=== PATIENT | female | born 1970 | race Caucasian/White ===

== ENCOUNTER 2017-09-08 18:51 | Emergency (ER) | payer OTHER ==
[2017-09-08 19:44] VITALS: BP 148/83; TEMP 99.2; BMI 33.3
--- NOTE | 2017-09-08 20:24 | PDOC ---
History of Present Illness - General Chief Complaint: Abscess Boil Stated Complaint: ABCESS Time Seen by Provider: 09/08/17 19:31 History Source: Patient, Old Records Exam Limitations: No Limitations - History of Present Illness Initial Comments: 09/08/17 20:23 This is a 47-year-old woman with past medical history of basilar reocclusions, NIDDM, acute bronchitis, bipolar disorder, major depressive disorder who is a resident at [facility] who was sent to emergency department for abscess to her right arm for 6 days which has not improved despite 2 days of Augmentin. Past History - Past Medical History Allergies/Adverse Reactions: Allergies Allergy/AdvReac Type Severity Reaction Status Date / Time acetaminophen Allergy Verified 09/08/17 19:45 [From Darvocet-N] bupropion [From Wellbutrin] Allergy Verified 09/08/17 19:45 codeine Allergy Verified 09/08/17 19:45 hydrocortisone Allergy Verified 09/08/17 19:45 propoxyphene Allergy Verified 09/08/17 19:45 [From Darvocet-N] silver sulfadiazine Allergy Verified 09/08/17 19:45 [From Silvadene] sulfur [From Sulfur-8] Allergy Verified 09/08/17 19:45 Home Medications: Ambulatory Orders Clindamycin [Cleocin -] 150 mg PO Q8H #63 capsule 09/08/17 Anemia: Yes COPD: Yes Diabetes: Yes Psychiatric Problems: Yes (Bipolar) Thyroid Disease: Yes - Suicide/Smoking/Psychosocial Hx Smoking History: Never smoked Hx Alcohol Use: No Drug/Substance Use Hx: No Review of Systems - Review of Systems Able to Perform ROS?: Yes Is the patient limited [place] proficient: No Constitutional: No: Symptoms Reported HEENTM: No: Symptoms Reported Respiratory: No: Symptoms reported Cardiac (ROS): No: Symptoms Reported ABD/GI: No: Symptoms Reported : No: Symptoms Reported Musculoskeletal: No: Symptoms Reported Integumentary: Yes: See HPI Neurological: No: Symptoms reported *Physical Exam - Vital Signs Last Vital Signs Temp Pulse Resp BP Pulse Ox 99.2 F 64 18 148/83 95 09/08/17 19:30 09/08/17 19:30 09/08/17 19:30 09/08/17 19:30 09/08/17 19:30 - Physical Exam General Appearance: Yes: Appropriately Dressed. No: Apparent Distress HEENT: positive: Normal ENT Inspection Neck: positive: Trachea midline, Supple, Other (tracheostomy in place) Respiratory/Chest: positive: Lungs Clear, Normal Breath Sounds, Other (on 28% oxygen via trach collar at baseline). negative: Respiratory Distress, Accessory Muscle Use Cardiovascular: positive: Regular Rhythm, Regular Rate. negative: Murmur Gastrointestinal/Abdominal: positive: Normal Bowel Sounds, Soft, Other (PEG tube present. Skin surround is within normal limits without erythema or drainage ). negative: Tender Musculoskeletal: positive: Normal Inspection Extremity: positive: Other (5x7cm ovoid area of induration with 1cm circular self draining area of fluctuance in the center) Integumentary: positive: Other (5x7cm ovoid area of induration with 1cm circular self draining area of fluctuance in the center) Neurologic: positive: Alert, Normal Response ED Treatment Course - LABORATORY CBC & Chemistry Diagram: 09/08/17 20:35 09/08/17 21:35 Medical Decision Making - Medical Decision Making 09/08/17 20:26 47-year-old woman with multiple medical problems including basilar occlusions and NIDDM with abscess noted to right forearm 5x7 cm ovoid area of induration noted to the volar side of the mid forearm. 1cm circular self draining area of fluctuance noted in the center of erythema Purulent brown drainage expressed from center No fluctuant areas remain after expression of pus Surrounding cellulitis remains Given patient's history of diabetes and inappropriate response to Augmentin I will collect laboratory testing, wound culture, and IV antibiotics. Given patient's shelter resident in care home facility, appearance of the wound drainage and no response to Augmentin this is likely an MRSA infection. Patient has ALLERGY to "sulfur" so I will defer Bactrim at this time and give the patient clindamycin. 09/08/17 22:27 Laboratory testing is unremarkable with the exception of a white count of 10.1. No left shift noted. Will discharge the patient back to during group home with prescription to continue taking clindamycin 450 mg 3 times a day for the next 7 days. 09/08/17 22:35 [facility] called an change in treatment plan relayed to the nurse responsible for the lower level floor where the patient resides. *DC/Admit/Observation/Transfer Diagnosis at time of Disposition: Abscess of arm, right - Discharge Dispostion Disposition: [facility] Condition at time of disposition: Fair Decision to Admit order: No - Prescriptions Prescriptions: Clindamycin [Cleocin -] 150 mg PO Q8H #63 capsule - Referrals Referrals: Yves Dutton MD [Primary Care Provider] - - Patient Instructions Additional Instructions: Rest, keep area elevated. Avoid strenuous activity or exercise until wound is healed Use hot soaks to area to bring more blood to the surface and encourage drainage May change dressings as needed to keep clean - trying to avoid removal of packing for 2 days. Allow water from shower to wash area thoroughly for 2-3 minutes, and pat dry upon exit of shower and replace dressing. Change his dressing daily until the wound is completely healed. May use Tylenol or Motrin for mild pain relief Take clindamycin 450mg- 3 times a day for the next 7 days. Followup with private physician in 2-3 days for wound check Return to emergency Department for worsening swelling, pain, redness, fevers as needed - Post Discharge Activity
[2017-09-08] MEDS ORDERED: CLINDAMYCIN 600MG PREMIX IVPB 600 MG/50 ML BAG IVPB ONE ×2 (20:30→20:47)
[2017-09-08 20:48] LABS: BASO % 0.7 % (0-2.0); EOS % 2.5 % (0-4.5); HEMATOCRIT 44.8 % (32.4-45.2); HEMOGLOBIN 14.7 GM/dL (10.7-15.3); LYMPH % 28.1 % (8-40); MCH 27.2 pg (25.7-33.7); MCHC 32.8 g/dl (32.0-36.0); MEAN CELL VOLUME 83.1 fl (80-96); MEAN PLT VOLUME 9.9 fl (7.5-11.1); MONO % 5.4 % (3.8-10.2); NEUT % 63.3 % (42.8-82.8); PLATELET COUNT 212 K/MM3 (134-434); RDW 13.8 % (11.6-15.6); WHITE BLOOD COUNT 10.1 K/mm3 (4.0-10.0)
[2017-09-08 22:19] LABS: ALBUMIN 3.5 g/dl (3.4-5.0); ANION GAP 9 (8-16); BLOOD UREA NITROGEN 14 mg/dL (7-18); CALCIUM 8.8 mg/dL (8.5-10.1); CHLORIDE 101 mmol/L (98-107); CO2 28 mmol/L (21-32); CREATININE 0.5 mg/dL (0.55-1.02); GLUCOSE,RANDOM 124 mg/dL (74-106); SGOT/AST 9 U/L (15-37); SGPT/ALT 19 U/L (12-78); SODIUM 138 mmol/L (136-145)
[2017-09-08 22:25] LABS: ALK PHOS 76 U/L (45-117); BILIRUBIN,TOTAL 0.3 mg/dL (0.2-1.0)
[2017-09-08 23:12] VITALS: PULSE 74
== END 2017-09-09 ==
LOC: JER 18:51
DX: L02.413 Cutaneous abscess of right upper limb (principal); E11.9 Type 2 diabetes mellitus without complications; F31.9 Bipolar disorder, unspecified; J44.9 Chronic obstructive pulmonary disease, unspecified; I66.9 Occlusion and stenosis of unspecified cerebral artery; Z87.09 Personal history of other diseases of the respiratory system; Z88.8 Allergy status to other drugs, medicaments and biological substances; Z79.84 Long term (current) use of oral hypoglycemic drugs
CPT/HCPCS: 36415; 80053; 83605; 85025; 87040; 87070; 87186; 87205; 99284-25

== ENCOUNTER 2018-09-13 11:42 | Emergency (ER) | payer OTHER | END 2018-09-13 16:57 | LOC: JER 11:42 ==

== ENCOUNTER 2023-03-23 15:41 | Inpatient (IN) | payer OTHER ==
[2023-03-23 16:38] VITALS: BMI 31.2
[2023-03-23 18:02] LABS: BASO % 0.7 % (0-2.0); EOS % 2.2 % (0-4.5); HEMOGLOBIN 14.2 GM/dL (10.7-15.3); LYMPH % 30.1 % (8-40); MCH 27.7 pg (25.7-33.7); MCHC 33.9 g/dl (32.0-36.0); MEAN CELL VOLUME 81.6 fl (80-96); MEAN PLT VOLUME 9.2 fl (7.5-11.1); MONO % 6.2 % (3.8-10.2); NEUT % 60.8 % (42.8-82.8); PLATELET COUNT 239 10^3/uL (134-434); RBC 5.15 M/mm3 (3.60-5.2); RDW 13.3 % (11.6-15.6); WHITE BLOOD COUNT 10.8 K/mm3 (4.0-10.0)
[2023-03-23 18:15] LABS: POTASSIUM 4.4 mmol/L (3.5-5.1)
[2023-03-23 18:17] LABS: BLOOD UREA NITROGEN 13.8 mg/dL (7-18); CALCIUM 8.9 mg/dL (8.5-10.1)
[2023-03-23 18:18] LABS: ALBUMIN 3.4 g/dl (3.4-5.0)
[2023-03-23 18:20] LABS: CREATININE 0.6 mg/dL (0.55-1.3)
[2023-03-23 18:22] LABS: BILIRUBIN,TOTAL 0.4 mg/dL (0.2-1); TOT PROT 6.7 g/dl (6.4-8.2)
[2023-03-23] MEDS ORDERED: PIPERACILLIN/TAZOB 3.375 GM 3.375 GM in DEXTROSE 5%-WATER - 50 ML IVPB SCH (21:45)
[2023-03-23] MEDS ORDERED: POLYETHYLENE GLYCOL (HEALTHYLAX) 3350 17 GM PACKET ONE (22:02)
[2023-03-23] MEDS ORDERED: PIPERACILLIN/TAZOB 3.375 GM 3.375 GM/50 ML BAG IVPB ONE (22:02)
[2023-03-23 22:24] LABS: URINE APPEARANCE CLEAR; URINE BILIRUBIN NEGATIVE (NEGATIVE); URINE COLOR YELLOW; URINE GLUCOSE (UA) 100 (NEGATIVE); URINE KETONE NEGATIVE (NEGATIVE)
[2023-03-23] MEDS: POLYETHYLENE GLYCOL (HEALTHYLAX) 3350 17 GM PACKET PO SCH (22:24)
[2023-03-23] MEDS: PIPERACILLIN/TAZOB 3.375 GM 3.375 GM in DEXTROSE 5%-WATER - 50 ML IVPB SCH (22:24)
[2023-03-23 22:25] LABS: URINE LEUK ESTERASE NEGATIVE (NEGATIVE); URINE NITRITE NEGATIVE (NEGATIVE); URINE PROTEIN NEGATIVE (NEGATIVE); URINE UROBILINOGEN 0.2 mg/dL (0.2-1.0)
[2023-03-24] MEDS ORDERED: MAGNESIUM CITRATE 300 ML BOTTLE PO ONE (01:18)
[2023-03-24] MEDS ORDERED: PATIENT'S OWN MEDICATION (NON-FORMULARY) (Acetaminophen [Acetaminophen] 325 MG Capsule) PO PRN (01:23)
[2023-03-24] MEDS ORDERED: ALBUTEROL SO4 HFA INHALER IH PRN (01:23)
[2023-03-24] MEDS ORDERED: PIPERACILLIN/TAZOB 3.375 GM 3.375 GM/50 ML BAG IVPB ONE ×2 (05:00→08:53)
[2023-03-24] MEDS: PIPERACILLIN/TAZOB 3.375 GM 3.375 GM in DEXTROSE 5%-WATER - 50 ML IVPB SCH ×2 (05:20→09:04)
[2023-03-24] MEDS: MINERAL OIL ENEMA 133 ML ENEMA RC SCH ×2 (05:20→05:21)
[2023-03-24 07:23] LABS: HEMATOCRIT 42.1 % (32.4-45.2); HEMOGLOBIN 14.4 GM/dL (10.7-15.3); MCH 27.9 pg (25.7-33.7); MCHC 34.1 g/dl (32.0-36.0); MEAN CELL VOLUME 81.9 fl (80-96); MEAN PLT VOLUME 9.5 fl (7.5-11.1); PLATELET COUNT 222 10^3/uL (134-434); RBC 5.15 M/mm3 (3.60-5.2); RDW 13.3 % (11.6-15.6); WHITE BLOOD COUNT 9.9 K/mm3 (4.0-10.0)
[2023-03-24 07:54] LABS: POTASSIUM 4.2 mmol/L (3.5-5.1)
[2023-03-24 07:59] LABS: ALBUMIN 3.5 g/dl (3.4-5.0)
[2023-03-24 08:02] LABS: BILIRUBIN,DIRECT 0.2 mg/dL (0.0-0.2)
[2023-03-24 08:03] LABS: BILIRUBIN,TOTAL 0.5 mg/dL (0.2-1); TOT PROT 6.8 g/dl (6.4-8.2)
[2023-03-24 08:04] LABS: MAGNESIUM 2.2 mg/dL (1.8-2.4)
[2023-03-24 08:05] LABS: BLOOD UREA NITROGEN 13.4 mg/dL (7-18)
[2023-03-24 08:07] LABS: PHOSPHOROUS 4.9 mg/dL (2.5-4.9)
[2023-03-24 08:08] LABS: CREATININE 0.8 mg/dL (0.55-1.3)
[2023-03-24] MEDS: INSULIN SLIDING SCALE (NOVOLOG) 1 VIAL SQ SCH ×4 (08:45→22:38)
[2023-03-24] MEDS ORDERED: busPIRone HCL 5 MG TABLET ONE (08:52)
[2023-03-24] MEDS ORDERED: METOPROLOL TARTRATE 25 MG TABLET (FP) ONE (08:52)
[2023-03-24] MEDS ORDERED: CLOPIDOGREL BISULFATE 75 MG TABLET (FP) ONE (08:52)
[2023-03-24] MEDS ORDERED: FAMOTIDINE 20 MG TABLET ONE (08:52)
[2023-03-24] MEDS ORDERED: POLYETHYLENE GLYCOL (HEALTHYLAX) 3350 17 GM PACKET ONE (08:52)
[2023-03-24] MEDS ORDERED: METOPROLOL TARTRATE 50 MG TABLET (FP) ONE (08:52)
[2023-03-24] MEDS ORDERED: ASPIRIN 81 MG CHEWABLE TABLETS ONE (08:53)
[2023-03-24] MEDS ORDERED: DULoxetine HCL 30 MG CAPSULE.DR PO ONE (08:53)
[2023-03-24] MEDS ORDERED: ESCITALOPRAM OXALATE 10 MG TABLET ONE (08:53)
[2023-03-24] MEDS ORDERED: LEVOTHYROXINE NA 25 MCG TABLET (FP) ONE (08:53)
[2023-03-24] MEDS: DULoxetine HCL 30 MG CAPSULE.DR PO SCH (08:57)
[2023-03-24] MEDS: busPIRone HCL 5 MG TABLET PO SCH ×2 (08:58→21:29)
[2023-03-24] MEDS: FAMOTIDINE 20 MG TABLET PO SCH (08:58)
[2023-03-24] MEDS: ESCITALOPRAM OXALATE 10 MG TABLET PO SCH (08:59)
[2023-03-24] MEDS: ASPIRIN 81 MG CHEWABLE TABLETS PO SCH (08:59)
[2023-03-24] MEDS: POLYETHYLENE GLYCOL (HEALTHYLAX) 3350 17 GM PACKET PO SCH ×2 (08:59→21:28)
[2023-03-24] MEDS: CLOPIDOGREL BISULFATE 75 MG TABLET (FP) PO SCH (08:59)
[2023-03-24] MEDS: LIDOCAINE 4% PATCH TP SCH (09:00)
[2023-03-24] MEDS: LEVOTHYROXINE NA 25 MCG TABLET (FP) PO SCH (09:01)
[2023-03-24] MEDS: MULTIVITAMINS THER W-MINERALS COMBO TABLET (FP) PO SCH (09:01)
[2023-03-24] MEDS: HEPARIN NA (PORCINE) 5,000 UNITS/ML 1ML VIAL SQ SCH ×2 (09:01→21:32)
[2023-03-24] MEDS: METOPROLOL TARTRATE 50 MG TABLET (FP) PO SCH ×3 (09:02→21:29)
[2023-03-24] MEDS: INSULIN (LEVEMIR) 100 UNITS/ML UNITS SQ SCH (09:30)
[2023-03-24] MEDS ORDERED: clonazePAM 0.25 MG ODT TABLETS SL SCH (10:00)
[2023-03-24] MEDS ORDERED: PATIENT'S OWN MEDICATION (NON-FORMULARY) (Linaclotide [Linzess] 145 MCG Capsule) PO SCH (10:00)
[2023-03-24] MEDS: MELATONIN 1 MG TABLET PO SCH (21:28)
[2023-03-24] MEDS: ATORVASTATIN CA 80 MG TABLET (FP) PO SCH (21:31)
[2023-03-24] MEDS: SENNOSIDES 8.6MG TABLET (FP) PO SCH (21:32)
[2023-03-24] MEDS: clonazePAM 0.25 MG ODT TABLETS SL SCH (22:38)
[2023-03-24] MEDS: LIDOCAINE PATCH REMOVAL MC SCH (22:39)
[2023-03-25] MEDS: LEVOTHYROXINE NA 25 MCG TABLET (FP) PO SCH (06:33)
[2023-03-25] MEDS: INSULIN SLIDING SCALE (NOVOLOG) 1 VIAL SQ SCH ×4 (06:38→22:13)
[2023-03-25 09:19] LABS: BASO % 0.5 % (0-2.0); EOS % 2.6 % (0-4.5); HEMATOCRIT 43.3 % (32.4-45.2); HEMOGLOBIN 14.5 GM/dL (10.7-15.3); LYMPH % 27.7 % (8-40); MCH 27.6 pg (25.7-33.7); MCHC 33.4 g/dl (32.0-36.0); MEAN CELL VOLUME 82.6 fl (80-96); MEAN PLT VOLUME 9.6 fl (7.5-11.1); MONO % 5.4 % (3.8-10.2); NEUT % 63.8 % (42.8-82.8); PLATELET COUNT 216 10^3/uL (134-434); RBC 5.24 M/mm3 (3.60-5.2); RDW 13.5 % (11.6-15.6); WHITE BLOOD COUNT 7.6 K/mm3 (4.0-10.0)
[2023-03-25 09:30] LABS: POTASSIUM 5.1 mmol/L (3.5-5.1)
[2023-03-25 09:35] LABS: CALCIUM 8.8 mg/dL (8.5-10.1)
[2023-03-25 09:36] LABS: ALBUMIN 3.4 g/dl (3.4-5.0); BLOOD UREA NITROGEN 8.9 mg/dL (7-18)
[2023-03-25 09:38] LABS: CREATININE 0.6 mg/dL (0.55-1.3)
[2023-03-25 09:40] LABS: BILIRUBIN,TOTAL 0.4 mg/dL (0.2-1); TOT PROT 6.6 g/dl (6.4-8.2)
[2023-03-25] MEDS ORDERED: PEG 3350/NA SULF BICARB CL/KCL 4000 ML SOLN.RECON PO ONE (10:00)
[2023-03-25] MEDS: DULoxetine HCL 30 MG CAPSULE.DR PO SCH (10:16)
[2023-03-25] MEDS: LIDOCAINE 4% PATCH TP SCH (10:17)
[2023-03-25] MEDS: ASPIRIN 81 MG CHEWABLE TABLETS PO SCH (10:17)
[2023-03-25] MEDS: busPIRone HCL 5 MG TABLET PO SCH ×2 (10:17→21:57)
[2023-03-25] MEDS: MULTIVITAMINS THER W-MINERALS COMBO TABLET (FP) PO SCH (10:17)
[2023-03-25] MEDS: ESCITALOPRAM OXALATE 10 MG TABLET PO SCH (10:18)
[2023-03-25] MEDS: METOPROLOL TARTRATE 50 MG TABLET (FP) PO SCH ×2 (10:18→21:58)
[2023-03-25] MEDS: CLOPIDOGREL BISULFATE 75 MG TABLET (FP) PO SCH (10:19)
[2023-03-25] MEDS: FAMOTIDINE 20 MG TABLET PO SCH (10:19)
[2023-03-25] MEDS: POLYETHYLENE GLYCOL (HEALTHYLAX) 3350 17 GM PACKET PO SCH ×2 (10:19→21:57)
[2023-03-25] MEDS: HEPARIN NA (PORCINE) 5,000 UNITS/ML 1ML VIAL SQ SCH ×2 (10:19→22:01)
[2023-03-25] MEDS: INSULIN (LEVEMIR) 100 UNITS/ML UNITS SQ SCH (10:20)
[2023-03-25] MEDS ORDERED: INSULIN (NOVOLOG) ASPART 100 UNITS/ML 10ML VIAL ONE ×2 (10:39→17:31)
[2023-03-25] MEDS ORDERED: INSULIN (LEVEMIR) 100 UNITS/ML UNITS SQ ONE (17:31)
[2023-03-25] MEDS: MELATONIN 1 MG TABLET PO SCH (21:57)
[2023-03-25] MEDS: SENNOSIDES 8.6MG TABLET (FP) PO SCH (21:57)
[2023-03-25] MEDS: clonazePAM 0.25 MG ODT TABLETS SL SCH (21:59)
[2023-03-25] MEDS: ATORVASTATIN CA 80 MG TABLET (FP) PO SCH (22:01)
[2023-03-25] MEDS: LIDOCAINE PATCH REMOVAL MC SCH (22:04)
[2023-03-26] MEDS: LEVOTHYROXINE NA 25 MCG TABLET (FP) PO SCH (06:25)
[2023-03-26] MEDS: INSULIN SLIDING SCALE (NOVOLOG) 1 VIAL SQ SCH ×4 (06:31→22:41)
[2023-03-26] MEDS: CLOPIDOGREL BISULFATE 75 MG TABLET (FP) PO SCH (09:16)
[2023-03-26] MEDS: METOPROLOL TARTRATE 50 MG TABLET (FP) PO SCH ×2 (09:16→22:50)
[2023-03-26] MEDS: POLYETHYLENE GLYCOL (HEALTHYLAX) 3350 17 GM PACKET PO SCH ×2 (09:16→22:57)
[2023-03-26] MEDS: DULoxetine HCL 30 MG CAPSULE.DR PO SCH (09:17)
[2023-03-26] MEDS: ESCITALOPRAM OXALATE 10 MG TABLET PO SCH (09:17)
[2023-03-26] MEDS: INSULIN (LEVEMIR) 100 UNITS/ML UNITS SQ SCH (09:19)
[2023-03-26] MEDS: HEPARIN NA (PORCINE) 5,000 UNITS/ML 1ML VIAL SQ SCH ×2 (09:20→22:51)
[2023-03-26] MEDS: LIDOCAINE 4% PATCH TP SCH (09:21)
[2023-03-26] MEDS: busPIRone HCL 5 MG TABLET PO SCH ×2 (09:22→22:50)
[2023-03-26] MEDS: ASPIRIN 81 MG CHEWABLE TABLETS PO SCH (09:23)
[2023-03-26] MEDS: FAMOTIDINE 20 MG TABLET PO SCH (09:23)
[2023-03-26] MEDS: MULTIVITAMINS THER W-MINERALS COMBO TABLET (FP) PO SCH (09:23)
[2023-03-26 09:33] LABS: BASO % 0.3 % (0-2.0); EOS % 2.1 % (0-4.5); HEMATOCRIT 43.2 % (32.4-45.2); HEMOGLOBIN 14.5 GM/dL (10.7-15.3); LYMPH % 21.5 % (8-40); MCH 27.8 pg (25.7-33.7); MCHC 33.5 g/dl (32.0-36.0); MEAN CELL VOLUME 83.1 fl (80-96); MEAN PLT VOLUME 9.4 fl (7.5-11.1); MONO % 4.4 % (3.8-10.2); NEUT % 71.7 % (42.8-82.8); PLATELET COUNT 213 10^3/uL (134-434); RDW 13.3 % (11.6-15.6); WHITE BLOOD COUNT 9.8 K/mm3 (4.0-10.0)
[2023-03-26 09:49] LABS: POTASSIUM 4.5 mmol/L (3.5-5.1)
[2023-03-26 09:53] LABS: CALCIUM 8.7 mg/dL (8.5-10.1)
[2023-03-26 09:54] LABS: ALBUMIN 3.3 g/dl (3.4-5.0)
[2023-03-26 09:57] LABS: CREATININE 0.7 mg/dL (0.55-1.3)
[2023-03-26 09:58] LABS: BILIRUBIN,TOTAL 0.7 mg/dL (0.2-1)
[2023-03-26 09:59] LABS: TOT PROT 6.6 g/dl (6.4-8.2)
[2023-03-26] MEDS ORDERED: INSULIN (NOVOLOG) ASPART 100 UNITS/ML 10ML VIAL ONE ×2 (11:09→17:00)
[2023-03-26] MEDS: LIDOCAINE PATCH REMOVAL MC SCH (21:41)
[2023-03-26] MEDS: MELATONIN 1 MG TABLET PO SCH (22:47)
[2023-03-26] MEDS: SENNOSIDES 8.6MG TABLET (FP) PO SCH (22:47)
[2023-03-26] MEDS: ATORVASTATIN CA 80 MG TABLET (FP) PO SCH (22:49)
[2023-03-26] MEDS: clonazePAM 0.25 MG ODT TABLETS SL SCH (22:50)
[2023-03-27] MEDS ORDERED: INSULIN (NOVOLOG) ASPART 100 UNITS/ML 10ML VIAL ONE ×3 (06:29→22:28)
[2023-03-27] MEDS: LEVOTHYROXINE NA 25 MCG TABLET (FP) PO SCH (06:40)
[2023-03-27] MEDS: INSULIN SLIDING SCALE (NOVOLOG) 1 VIAL SQ SCH ×4 (06:40→22:40)
[2023-03-27 09:32] LABS: BASO % 0.4 % (0-2.0); EOS % 3.1 % (0-4.5); HEMATOCRIT 42.8 % (32.4-45.2); HEMOGLOBIN 14.3 GM/dL (10.7-15.3); LYMPH % 24.1 % (8-40); MCH 27.8 pg (25.7-33.7); MCHC 33.4 g/dl (32.0-36.0); MEAN CELL VOLUME 83.1 fl (80-96); MEAN PLT VOLUME 9.5 fl (7.5-11.1); MONO % 4.4 % (3.8-10.2); PLATELET COUNT 221 10^3/uL (134-434); RBC 5.15 M/mm3 (3.60-5.2); RDW 13.2 % (11.6-15.6); WHITE BLOOD COUNT 10.4 K/mm3 (4.0-10.0)
[2023-03-27 09:40] LABS: POTASSIUM 4.4 mmol/L (3.5-5.1)
[2023-03-27 09:42] LABS: CALCIUM 9.8 mg/dL (8.5-10.1)
[2023-03-27 09:43] LABS: ALBUMIN 3.3 g/dl (3.4-5.0); BLOOD UREA NITROGEN 4.9 mg/dL (7-18)
[2023-03-27 09:46] LABS: CREATININE 0.6 mg/dL (0.55-1.3)
[2023-03-27 09:48] LABS: BILIRUBIN,TOTAL 0.7 mg/dL (0.2-1); TOT PROT 6.5 g/dl (6.4-8.2)
[2023-03-27] MEDS: HEPARIN NA (PORCINE) 5,000 UNITS/ML 1ML VIAL SQ SCH ×2 (10:38→22:39)
[2023-03-27] MEDS: POLYETHYLENE GLYCOL (HEALTHYLAX) 3350 17 GM PACKET PO SCH ×2 (10:40→22:40)
[2023-03-27] MEDS: busPIRone HCL 5 MG TABLET PO SCH ×2 (10:40→22:36)
[2023-03-27] MEDS: ESCITALOPRAM OXALATE 10 MG TABLET PO SCH (10:41)
[2023-03-27] MEDS: FAMOTIDINE 20 MG TABLET PO SCH (10:41)
[2023-03-27] MEDS: DULoxetine HCL 30 MG CAPSULE.DR PO SCH (10:42)
[2023-03-27] MEDS: ASPIRIN 81 MG CHEWABLE TABLETS PO SCH (10:42)
[2023-03-27] MEDS: CLOPIDOGREL BISULFATE 75 MG TABLET (FP) PO SCH (10:42)
[2023-03-27] MEDS: METOPROLOL TARTRATE 50 MG TABLET (FP) PO SCH ×2 (10:43→22:37)
[2023-03-27] MEDS: INSULIN (LEVEMIR) 100 UNITS/ML UNITS SQ SCH (10:43)
[2023-03-27] MEDS: LIDOCAINE 4% PATCH TP SCH (10:44)
[2023-03-27] MEDS: MULTIVITAMINS THER W-MINERALS COMBO TABLET (FP) PO SCH (10:44)
[2023-03-27] MEDS: ATORVASTATIN CA 80 MG TABLET (FP) PO SCH (22:36)
[2023-03-27] MEDS: SENNOSIDES 8.6MG TABLET (FP) PO SCH (22:36)
[2023-03-27] MEDS: clonazePAM 0.25 MG ODT TABLETS SL SCH (22:36)
[2023-03-27] MEDS: MELATONIN 1 MG TABLET PO SCH (22:36)
[2023-03-27] MEDS: LIDOCAINE PATCH REMOVAL MC SCH (22:41)
[2023-03-27 22:55] VITALS: RESP 18
[2023-03-28] MEDS: LEVOTHYROXINE NA 25 MCG TABLET (FP) PO SCH (06:35)
[2023-03-28] MEDS: INSULIN SLIDING SCALE (NOVOLOG) 1 VIAL SQ SCH ×4 (06:56→21:40)
[2023-03-28 09:18] LABS: BASO % 0.4 % (0-2.0); EOS % 2.3 % (0-4.5); HEMATOCRIT 44.4 % (32.4-45.2); HEMOGLOBIN 14.5 GM/dL (10.7-15.3); LYMPH % 23.7 % (8-40); MCHC 32.7 g/dl (32.0-36.0); MEAN CELL VOLUME 82.7 fl (80-96); MEAN PLT VOLUME 9.2 fl (7.5-11.1); MONO % 4.3 % (3.8-10.2); NEUT % 69.3 % (42.8-82.8); PLATELET COUNT 225 10^3/uL (134-434); RBC 5.37 M/mm3 (3.60-5.2); RDW 13.3 % (11.6-15.6); WHITE BLOOD COUNT 9.6 K/mm3 (4.0-10.0)
[2023-03-28 10:50] LABS: ALBUMIN 3.3 g/dl (3.4-5.0); BILIRUBIN,TOTAL 0.8 mg/dL (0.2-1); CALCIUM 9.3 mg/dL (8.5-10.1); CREATININE 0.6 mg/dL (0.55-1.3); POTASSIUM 4.4 mmol/L (3.5-5.1); TOT PROT 6.3 g/dl (6.4-8.2)
[2023-03-28] MEDS: FAMOTIDINE 20 MG TABLET PO SCH (10:57)
[2023-03-28] MEDS: DULoxetine HCL 30 MG CAPSULE.DR PO SCH (10:57)
[2023-03-28] MEDS: CLOPIDOGREL BISULFATE 75 MG TABLET (FP) PO SCH (10:57)
[2023-03-28] MEDS: METOPROLOL TARTRATE 50 MG TABLET (FP) PO SCH ×3 (10:57→23:45)
[2023-03-28] MEDS: ESCITALOPRAM OXALATE 10 MG TABLET PO SCH (10:58)
[2023-03-28] MEDS: MULTIVITAMINS THER W-MINERALS COMBO TABLET (FP) PO SCH (10:58)
[2023-03-28] MEDS: ASPIRIN 81 MG CHEWABLE TABLETS PO SCH (10:58)
[2023-03-28] MEDS: HEPARIN NA (PORCINE) 5,000 UNITS/ML 1ML VIAL SQ SCH ×2 (10:59→21:39)
[2023-03-28] MEDS: INSULIN (LEVEMIR) 100 UNITS/ML UNITS SQ SCH (10:59)
[2023-03-28] MEDS: POLYETHYLENE GLYCOL (HEALTHYLAX) 3350 17 GM PACKET PO SCH ×3 (10:59→22:03)
[2023-03-28] MEDS: LIDOCAINE 4% PATCH TP SCH (11:00)
[2023-03-28] MEDS: busPIRone HCL 5 MG TABLET PO SCH ×2 (11:05→21:37)
[2023-03-28] MEDS ORDERED: DOCUSATE SODIUM 100 MG CAPSULE (FP) PO PRN (15:02)
[2023-03-28] MEDS: clonazePAM 0.25 MG ODT TABLETS SL SCH (21:37)
[2023-03-28] MEDS: SENNOSIDES 8.6MG TABLET (FP) PO SCH (21:38)
[2023-03-28] MEDS: MELATONIN 1 MG TABLET PO SCH (21:38)
[2023-03-28] MEDS: ATORVASTATIN CA 80 MG TABLET (FP) PO SCH (21:38)
[2023-03-28] MEDS: LIDOCAINE PATCH REMOVAL MC SCH (21:40)
[2023-03-29] MEDS: LEVOTHYROXINE NA 25 MCG TABLET (FP) PO SCH (07:02)
[2023-03-29] MEDS: INSULIN SLIDING SCALE (NOVOLOG) 1 VIAL SQ SCH ×2 (07:02→11:35)
[2023-03-29] MEDS: INSULIN (LEVEMIR) 100 UNITS/ML UNITS SQ SCH (10:23)
[2023-03-29] MEDS: CLOPIDOGREL BISULFATE 75 MG TABLET (FP) PO SCH (10:26)
[2023-03-29] MEDS: ESCITALOPRAM OXALATE 10 MG TABLET PO SCH (10:26)
[2023-03-29] MEDS: ASPIRIN 81 MG CHEWABLE TABLETS PO SCH (10:26)
[2023-03-29] MEDS: DULoxetine HCL 30 MG CAPSULE.DR PO SCH (10:27)
[2023-03-29] MEDS: busPIRone HCL 5 MG TABLET PO SCH (10:27)
[2023-03-29] MEDS: FAMOTIDINE 20 MG TABLET PO SCH (10:27)
[2023-03-29] MEDS: METOPROLOL TARTRATE 50 MG TABLET (FP) PO SCH ×2 (10:27→10:31)
[2023-03-29] MEDS: MULTIVITAMINS THER W-MINERALS COMBO TABLET (FP) PO SCH (10:27)
[2023-03-29] MEDS: POLYETHYLENE GLYCOL (HEALTHYLAX) 3350 17 GM PACKET PO SCH (10:28)
[2023-03-29] MEDS: LIDOCAINE 4% PATCH TP SCH (10:28)
[2023-03-29] MEDS: HEPARIN NA (PORCINE) 5,000 UNITS/ML 1ML VIAL SQ SCH (10:28)
[2023-03-29 15:21] VITALS: BP 110/62; PULSE 63; TEMP 98.7
[2023-03-29] MEDS ORDERED: INSULIN (NOVOLOG) ASPART 100 UNITS/ML 10ML VIAL ONE (17:59)
== END 2023-03-29 17:35 | DRG 395 ==
LOC: JER 15:41 → JERBED 21:39 → J7W 03-24 13:32
PROVIDERS: ADMIT Internal Medicine
DX: K62.89 Other specified diseases of anus and rectum (principal); K59.00 Constipation, unspecified; J45.909 Unspecified asthma, uncomplicated; E03.9 Hypothyroidism, unspecified; F31.9 Bipolar disorder, unspecified; E11.9 Type 2 diabetes mellitus without complications; I10 Essential (primary) hypertension; F90.9 Attention-deficit hyperactivity disorder, unspecified type; F41.0 Panic disorder [episodic paroxysmal anxiety]; E78.5 Hyperlipidemia, unspecified; G47.33 Obstructive sleep apnea (adult) (pediatric); Z99.3 Dependence on wheelchair; I25.10 Atherosclerotic heart disease of native coronary artery without angina pectoris; G47.00 Insomnia, unspecified; M79.7 Fibromyalgia; Z68.31 Body mass index [BMI] 31.0-31.9, adult; F41.8 Other specified anxiety disorders; E66.9 Obesity, unspecified
CPT/HCPCS: 36415; 71046-TC-FY; 74177-TC; 80048; 80053; 80076; 81003; 82962; 83036; 83735; 84100; 84484; 85025; 85027; 87086; 93005; 93010; 93306-TC; 97116-GP; 97161-GP; 99285-25; J1644

== ENCOUNTER 2023-04-03 10:08 | Emergency (ER) | payer OTHER ==
[2023-04-03 11:13] VITALS: BMI 26.6
[2023-04-04 10:33] VITALS: TEMP 98.1
[2023-04-04 10:53] VITALS: BP 107/54; PULSE 74; RESP 19
== END 2023-04-04 10:45 | disposition home or self-care (01) ==
LOC: JER 10:08
DX: S00.03XA Contusion of scalp, initial encounter (principal); W01.198A Fall on same level from slipping, tripping and stumbling with subsequent striking against other object, initial encounter; Y92.9 Unspecified place or not applicable
CPT/HCPCS: 70450-TC; 99284-25